=== PATIENT | female | born 1960 | race Caucasian/White ===

== ENCOUNTER → 2017-05-13 | Outpatient (CLI) | payer BC ==
[~2017-05-13] MED LIST: CYCL-259 PO; DIAZ5TAB PO; ESTR0.5T PO; METH10TA4 PO; METH750T87 PO; OXYC-307 PO; ZOLP10TA PO
== END | disposition home or self-care (01) ==
LOC: CFH 14:54
PROVIDERS: ATTEND Family Medicine
DX: M47.894 Other spondylosis, thoracic region (principal)
CPT/HCPCS: 72072

== ENCOUNTER → 2017-07-31 | Outpatient (CLI) | payer BC ==
[~2017-07-31] MED LIST changes: +FENTANYL PF 100 MCG/2ML ONE; +MIDAZOLAM 1 MG/ML, 5ML ONE
== END | disposition home or self-care (01) ==
LOC: RAD 13:17
PROVIDERS: ATTEND Physician Assistant Medical
DX: M48.02 Spinal stenosis, cervical region (principal); Z98.890 Other specified postprocedural states
CPT/HCPCS: 72050; 72141; 99156; 99157; J2250; J3010